=== PATIENT | male | born 1970 | race Caucasian/White ===

== ENCOUNTER 2023-11-28 22:40 | Emergency (ER) | payer OTHER ==
[2023-11-28 23:42] VITALS: RESP 16
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
[2023-11-29 04:04] VITALS: BP 105/71; PULSE 70; TEMP 97.8
== END 2023-11-29 15:23 | disposition home or self-care (01) ==
LOC: EC 22:40
DX: F10.929 Alcohol use, unspecified with intoxication, unspecified (principal); F17.200 Nicotine dependence, unspecified, uncomplicated
CPT/HCPCS: 99284

== ENCOUNTER → 2024-02-18 | Outpatient (CLI) | payer OTHER ==
--- NOTE | 2024-02-18 10:04 | XR ---
EXAMINATION TYPE: XR chest 2V DATE OF EXAM: 02/18/2024 COMPARISON: NONE TECHNIQUE: PA and lateral views submitted. HISTORY: COPD FINDINGS: The lungs are clear and there is no pneumothorax, pleural effusion, or focal pneumonia. Heart size normal and no overt failure. Osseous structures intact. There is emphysematous changes. Arthropathy o f the shoulder. IMPRESSION: 1. No acute process. 2. COPD.
[2024-02-18 16:22] LABS: Basophils # (A) 0.08 X 10*3/uL (0.00-0.10); Eosinophils # (A) 0.41 X 10*3/uL (0.04-0.35); Eosinophils % (A) 4.9 %; HCT 44.7 % (39.6-50.0); HGB 14.3 g/dL (13.0-17.0); Lymphocytes # (A) 3.78 X 10*3/uL (0.90-5.00); Lymphocytes % (A) 45.2 %; MCH 32.9 pg (27.0-32.0); MCV 102.8 FL (80.0-97.0); Mean Platelet Volume 10.3 FL (9.5-12.2); Monocytes % (A) 7.2 %; NRBC Per 100 WBC 0 X 10*3/uL (0.00-0.01); Neutrophils # (A) 3.48 X 10*3/uL (1.80-7.70); Neutrophils % (A) 41.5 %; Platelet Count 241 X 10*3/uL (140-440); RBC 4.35 X 10*6/uL (4.40-5.60); RDW 12.5 % (11.5-14.5); WBC 8.37 X 10*3/uL (4.50-10.00)
[2024-02-18 16:40] LABS: Hepatitis A Antibody IgM Nonreactive (Nonreactive); Hepatitis B Core IgM Nonreactive (Nonreactive); Hepatitis B Surface Antigen Nonreactive (Nonreactive); Hepatitis C IgG Antibody Nonreactive (Nonreactive)
[2024-02-18 16:44] LABS: Erythrocyte Sedimentation Rate 8 mm/Hr (0-20)
[2024-02-18 16:48] LABS: Chol/HDL Ratio 3.44 Ratio; Creatine Kinase 45 U/L (35-257)
[2024-02-18 16:49] LABS: % Iron Saturation 27.57 (15.00-50.00); ALT 13 U/L (10-49); AST 20 U/L (14-35); Albumin 4.4 g/dL (3.8-4.9); Albumin/Globulin Ratio 1.69 Ratio (1.60-3.17); Alkaline Phosphatase 64 U/L (41-126); BUN/Creat Ratio 13.62 Ratio (12.00-20.00); Blood Urea Nitrogen 10.9 mg/dL (9.0-27.0); Calcium 9.6 mg/dL (8.7-10.3); Carbon Dioxide 26.7 mmol/L (21.6-31.8); Chloride 107 mmol/L (96-109); Globulin 2.6 g/dL (1.6-3.3); Glucose 109 mg/dL (70-110); Iron 83 UG/DL (65-175); LDL Cholesterol,Calculated 106.7 mg/dL (0.0-131.0); Magnesium 2.1 mg/dL (1.5-2.4); Phosphorus 4.5 mg/dL (2.4-5.1); Prostate Specific Antigen 0.39 ng/mL (0.000-3.500); Sodium 143 mmol/L (135-145); Total Bilirubin 0.3 mg/dL (0.3-1.2); Total Iron Binding Capacity 301 UG/DL (228-460); Uric Acid 6.6 mg/dL (3.7-8.7); VLDL Calculation 15.98 mg/dL (5.00-40.00)
== END | disposition home or self-care (01) ==
LOC: RADXRMAIN 09:40
PROVIDERS: ATTEND Internal Medicine
DX: J44.9 Chronic obstructive pulmonary disease, unspecified (principal)
CPT/HCPCS: 36415; 71046; 80053; 80061; 80074; 82306; 82550; 82728; 83540; 83550; 83735; 84100; 84153; 84443; 84550; 85025; 85652; 86140